=== PATIENT | female | born 1980 | race Two or more races ===

== ENCOUNTER 2021-03-07 11:30 | Day surgery (SDC) | payer OTHER ==
[~2021-03-07 11:30] MED LIST: AMBIEN10 MG PO; CLONAZEPAM2 MG PO; SEROQ PO; WELLBUTRIN XL300 MG PO
== END 2021-03-07 20:25 | disposition home or self-care (01) ==
LOC: CIR.AMB 11:30
PROVIDERS: ATTEND Obstetrics & Gynecology Obstetrics
DX: N93.8 Other specified abnormal uterine and vaginal bleeding (principal); Z20.822 Contact with and (suspected) exposure to COVID-19